=== PATIENT | female | born 1975 | race Caucasian/White ===

== ENCOUNTER 2017-04-27 10:31 | Emergency (ER) | payer MEDICAID ==
[~2017-04-27] VITALS: Ht 167.6 cm; Wt 129.0 kg
[2017-04-27 10:35] VITALS: BP 134/89
[2017-04-27] MEDS ORDERED: DIPH,PERTUSS(ACELL),TET VAC/PF 0.5 ML IM-VACC ONE ×2 (11:00→11:04)
[2017-04-27] MEDS ORDERED: HYDROmorphone 1 MG/ML, 1ML IM ONE (11:00)
[2017-04-27] MEDS ORDERED: BUPIVACAINE/PF 0.25% INFIL ONE (11:00)
[2017-04-27] MEDS ORDERED: LIDOCAINE 1%, 20ML INFIL ONE (11:00)
[2017-04-27] MEDS ORDERED: HYDROmorphone 1 MG/ML, 1ML ONE ×2 (11:04→11:06)
[2017-04-27] MEDS ORDERED: BUPIVACAINE 0.25% ONE (11:04)
[2017-04-27] MEDS ORDERED: LIDOCAINE 1%, 20ML ONE (11:04)
[2017-04-27] MEDS ORDERED: ONDANSETRON ODT 4 MG ONE (11:20)
[2017-04-27] MEDS ORDERED: ONDANSETRON ODT 4 MG PO ONE (11:30)
[2017-04-27] MEDS ORDERED: CEPHALEXIN 500 MG CAPSULE ONE (12:24)
[2017-04-27] MEDS ORDERED: CEPHALEXIN 500 MG CAPSULE PO ONE (12:30)
== END 2017-04-27 12:45 | disposition home or self-care (01) ==
LOC: ED 12:39
DX: S91.311A Laceration without foreign body, right foot, initial encounter (principal); W22.8XXA Striking against or struck by other objects, initial encounter; Y93.89 Activity, other specified; Y99.8 Other external cause status; Y92.099 Unspecified place in other non-institutional residence as the place of occurrence of the external cause
CPT/HCPCS: 12002; 73630; 90471; 90715; 96372; 99284; J1170; J3490; Q0162

== ENCOUNTER 2017-05-04 12:44 | Emergency (ER) | payer MEDICAID ==
[~2017-05-04] VITALS: Ht 170.2 cm; Wt 124.6 kg
[2017-05-04 13:02] VITALS: BP 125/93
[2017-05-04] MEDS ORDERED: BACITRACIN ZINC OINT 500U/GM, 0.9 GM TP ONE (14:30)
[2017-05-04] MEDS ORDERED: BACITRACIN ZINC OINT 500U/GM, 0.9 GM ONE (14:34)
== END 2017-05-04 14:34 | disposition home or self-care (01) ==
LOC: ED 14:20
DX: S91.311D Laceration without foreign body, right foot, subsequent encounter (principal); I10 Essential (primary) hypertension
CPT/HCPCS: 99283